=== PATIENT | female | born 1985 | race Caucasian/White ===

== ENCOUNTER → 2017-06-17 | Outpatient (CLI) | payer OTHER ==
[~2017-06-17] MED LIST: AMOX500 PO; CEPH500 PO; CLIN150 PO; CODACE30 PO; CRUTCH4 USE; HYDACE5 PO; HYDACE5325 PO; IBUP600 PO; IBUP800 PO; OXYACE5T PO; PENVK500 PO; PRED20 PO; RXCLIN PO; RXHYDACE PO; RXOXYACE PO; SULTRIDS PO; VICODIN
[2017-06-17 14:45] LABS: Candida species (DNA Probe) Negative (NEGATIVE); G. vaginalis (DNA Probe) Positive (NEGATIVE); T. vaginalis (DNA Probe) Negative (NEGATIVE)
== END ==
LOC: LAB 12:06
PROVIDERS: Nurse Practitioner Family
DX: N89.8 Other specified noninflammatory disorders of vagina (principal)
CPT/HCPCS: 87480; 87510; 87660

== ENCOUNTER → 2020-10-04 | Outpatient (CLI) | payer OTHER ==
[2020-10-06 01:10] LABS: CHLAMYDIA TRACHOMATIS, NAA Negative (Negative)
[2020-10-08 12:10] LABS: HPV 16 Negative (Negative); HPV 18 Negative (Negative); HPV OTHER HR TYPES Negative (Negative)
== END ==
LOC: LAB SHORT 14:00 → LAB UCHC 14:00
PROVIDERS: Family Medicine
DX: Z01.419 Encounter for gynecological examination (general) (routine) without abnormal findings (principal)
CPT/HCPCS: 87491; 87591; 87624; G0123

== ENCOUNTER 2021-02-16 13:45 | Emergency (ER) | payer OTHER ==
[~2021-02-16] VITALS: Ht 170.2 cm; Wt 102.5 kg
[2021-02-16] MEDS ORDERED: Avidoxy100 MG PO (14:33)
[2021-02-16] MEDS ORDERED: HYDR1TAB94 PO (15:43)
== END 2021-02-16 15:55 | disposition home or self-care (01) ==
LOC: ER 13:45
DX: L73.2 Hidradenitis suppurativa (principal); Z88.8 Allergy status to other drugs, medicaments and biological substances
CPT/HCPCS: 10061; 99283-25

== ENCOUNTER 2021-03-26 19:31 | Emergency (ER) | payer OTHER ==
[~2021-03-26] VITALS: Ht 170.2 cm; Wt 97.5 kg
[~2021-03-26 19:31] MED LIST changes: +Avidoxy100 MG PO; +HYDR1TAB94 PO
[2021-03-26] MEDS ORDERED: Ventolin/Prove6.7 GM (20:10)
[2021-03-26] MEDS ORDERED: Bactrim Ds Tab1 EACH PO (21:07)
[2021-03-26] MEDS ORDERED: CEPH500 PO (21:07)
== END 2021-03-26 21:16 | disposition home or self-care (01) ==
LOC: ER 19:31
DX: L02.211 Cutaneous abscess of abdominal wall (principal); Z88.8 Allergy status to other drugs, medicaments and biological substances; Z98.84 Bariatric surgery status
CPT/HCPCS: 10061; 96372; 99282-25; A9270; J1885

== ENCOUNTER → 2024-07-12 | Outpatient (CLI) | payer OTHER ==
[~2024-07-12] MED LIST changes: +Bactrim Ds Tab1 EACH PO; +Ventolin/Prove6.7 GM
[2024-07-12 12:53] LABS: Candida Group, PCR NOT DETECTED (NOT DETECT); Candida glabrata-krusei, PCR NOT DETECTED (NOT DETECT)
[2024-07-12 13:00] LABS: Bacterial Vaginosis PCR Positive (NEGATIVE)
== END | disposition home or self-care (01) ==
LOC: LAB 09:46 → LAB SHORT 09:46
PROVIDERS: Registered Nurse Community Health
DX: N89.8 Other specified noninflammatory disorders of vagina (principal)
CPT/HCPCS: 81515

== ENCOUNTER → 2024-09-08 | Outpatient (CLI) | payer OTHER ==
[2024-09-09 08:11] LABS: Candida glabrata-krusei, PCR NOT DETECTED (NOT DETECT)
[2024-09-09 08:52] LABS: Bacterial Vaginosis PCR Positive (NEGATIVE); Candida Group, PCR DETECTED (NOT DETECT)
== END | disposition home or self-care (01) ==
LOC: LAB 15:51 → LAB SHORT 15:51
PROVIDERS: General Practice
DX: N89.8 Other specified noninflammatory disorders of vagina (principal)
CPT/HCPCS: 81515